=== PATIENT | male | born 1940 | race Caucasian/White ===

== ENCOUNTER 2018-03-08 11:19 | Emergency (ER) | payer MEDICARE ==
[~2018-03-08] VITALS: Ht 160 cm; Wt 66.7 kg
--- NOTE | 2018-03-08 11:25 | NUR ---
PT AMBULATORY TO ER BED 06. PT C/O DIARRHEA X 5 DAYS NOW. DENIES N/V. PT STATES STARTED HIS NEW CYCLE FOR CHEMOTHERAPY. 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 GOWNED AND PLACED ON MONITOR. VSS. AWAITING MD REESE.
--- NOTE | 2018-03-08 11:38 | NUR ---
DR MATUTE AT BEDSIDE FOR EVAL.
[2018-03-08 11:53] LABS: BASOPHILS # (AUTO) 0.1 /CMM (0.0-0.2); BASOPHILS % (AUTO) 0.3 % (0.0-2.0); EOSINOPHILS % (AUTO) 0.4 % (0.0-6.0); HEMATOCRIT 32 % (39-51); HEMOGLOBIN 10.2 g/dL (13.5-17.5); LYMPHOCYTES # (AUTO) 2.1 /CMM (0.8-4.8); LYMPHOCYTES % (AUTO) 12.3 % (20.0-44.0); MEAN CORPUSCULAR HEMOGLOBIN 31 PG (26.0-33.0); MEAN CORPUSCULAR HGB CONC 32 g/dl (31.0-36.0); MEAN CORPUSCULAR VOLUME 99 fL (80-96); MONOCYTES # (AUTO) 1.1 /CMM (0.1-1.30); MONOCYTES % (AUTO) 6.3 % (2.0-12.0); NEUTROPHILS # (AUTO) 13.4 /CMM (1.8-8.9); NEUTROPHILS % (AUTO) 80.7 % (43.0-81.0); PLATELET COUNT (AUTO) 179 /CMM (150-450); RDW COEFFICIENT OF VARIATION 22.9 (11.5-15.0); RED BLOOD CELL COUNT(AUTO) 3.24 MIL/uL (4.5-6.0); WHITE BLOOD COUNT (AUTO) 16.8 K/uL (4.3-11.0)
--- NOTE | 2018-03-08 11:58 | NUR ---
IV FLUID GIVEN RT UPPPER CHEST ERROL CATH AKHTAR NEEDLE APPLIED AND FLUSHED IN NS 1000CC GIVEN . PT CALM CALL LIGHT GIVEN TO PT AWAITING EVALUATION BY ER PROVIDER.
[2018-03-08] MEDS ORDERED: IV NS 0.9% 1,000 ML BAG IV ONE (12:00)
[2018-03-08 12:02] LABS: CALCIUM, SERUM 8.3 mg/dL (8.5-10.1); CARBON DIOXIDE 24 mmol/L (21-32); CHLORIDE 108 mmol/L (98-107); CREATININE 1.4 mg/dL (0.6-1.3); GLUCOSE 88 mg/dL (74-106); POTASSIUM 3.5 mmol/L (3.5-5.1); SODIUM SERUM 140 mmol/L (136-145); UREA NITROGEN, BLOOD 14 mg/dL (7-18)
[2018-03-08 12:07] LABS: ALANINE AMINOTRANSFERASE 16 U/L (12-78); ALBUMIN 3.3 g/dL (3.4-5.0); ALKALINE PHOSPHATASE 105 U/L (46-116); ASPARTATE AMINOTRANSFERASE 12 U/L (15-37); BILIRUBIN,DIRECT 0.1 mg/dL (0.0-0.2); BILIRUBIN,TOTAL 0.4 mg/dL (0.2-1.0); LIPASE 265 U/L (73-393); TOTAL PROTEIN, SERUM 6.7 g/dL (6.4-8.2)
[2018-03-08] MEDS ORDERED: PEGF6DIS2 PO (12:13)
[2018-03-08] MEDS ORDERED: DIPH1TAB28 PO (12:13)
[2018-03-08] MEDS ORDERED: CAPE500T15 PO (12:13)
[2018-03-08 12:48] VITALS: BP 150/74
--- NOTE | 2018-03-08 12:49 | NUR ---
PT. VERBALIZED UNDERSTANDING OF AFTERCARE INSTRUCTIONS.Patient discharged to home in stable condition. Written and verbal after care instructions given. Patient verbalizes understanding of instruction.IV removed. Catheter intact and site benign. Pressure and 4x4 applied to site. No bleeding noted.
[2018-03-08 13:25] LABS: BAND % (MANUAL) 18 % (0.0-5.0); EOSINOPHILS % (MANUAL) 1 % (0-4); LYMPHOCYTES % (MANUAL) 15 % (16-48); MONOCYTES % (MANUAL) 9 % (0-11.0); NEUTROPHILS % (MANUAL) 57 (42-76)
== END 2018-03-08 12:50 | disposition home or self-care (01) ==
LOC: ER 11:24
DX: A09 Infectious gastroenteritis and colitis, unspecified (principal); Z85.028 Personal history of other malignant neoplasm of stomach; Z90.3 Acquired absence of stomach [part of]; Z60.2 Problems related to living alone; Z85.01 Personal history of malignant neoplasm of esophagus
CPT/HCPCS: 36415; 80048; 80076; 83690; 85025; 96360; 99284; A4606; J7030; Z7610